=== PATIENT | female | born 1980 | race African-American/Black ===

== ENCOUNTER 2025-03-20 09:06 | Emergency (ER) | payer MEDICAID, OTHER ==
[~2025-03-20] VITALS: Ht 162.6 cm; Wt 85.0 kg
[2025-03-20 09:22] VITALS: O2SAT 99
[2025-03-20] MEDS: KETOROLAC 15MG/ML VIAL IM ONE (10:36)
[2025-03-20] MEDS: CYCLOBENZAPRINE 10MG TABLET PO ONE (10:36)
[2025-03-20] MEDS ORDERED: METH4TAB95 MT (11:17)
[2025-03-20] MEDS ORDERED: IBUP-1455 MT (11:18)
[2025-03-20 11:28] VITALS: BP 112/67; PULSE 78; RESP 17; TEMP 36.7; O2SAT 99
== END 2025-03-20 11:28 | disposition home or self-care (01) ==
LOC: ER 09:06
DX: M62.838 Other muscle spasm (principal)
CPT/HCPCS: 99283; 96372; J1885